=== PATIENT | female | born 1970 | race Caucasian/White ===

== ENCOUNTER → 2016-06-10 | Outpatient (CLI) | payer BC ==
[~2016-06-10] VITALS: Ht 157.5 cm; Wt 108.1 kg
[~2016-06-10] MED LIST: CENTRUM SILVER1 EAC4 PO; COLACE100 MG PO; GLUCOSAMINE &1 EAC1 PO; PRILOSEC20 MG PO; PROTONIX40 MG PO; PROZAC20 MG PO; VITAMIN D31000 UNIT PO
== END | disposition home or self-care (01) ==
LOC: AMB 12:25
PROC: 0DJ08ZZ Inspection of Upper Intestinal Tract, Via Natural or Artificial Opening Endoscopic (ICD-10-PCS; principal; 2016-06-10)
DX: K21.9 Gastro-esophageal reflux disease without esophagitis (principal); E66.01 Morbid (severe) obesity due to excess calories; Z68.41 Body mass index [BMI] 40.0-44.9, adult; Z81.8 Family history of other mental and behavioral disorders; Z83.79 Family history of other diseases of the digestive system
CPT/HCPCS: B4087; J2250

== ENCOUNTER 2016-07-09 09:43 | Inpatient (IN) | payer BC ==
[~2016-07-09] VITALS: Ht 157.5 cm; Wt 104.3 kg
[2016-07-14 09:17] LABS: POINT-OF-CARE METER ID UU14174212
[2016-07-14 09:53] VITALS: BP 137/60
[2016-07-14 14:40] VITALS: BP 150/79
[2016-07-14 14:42] LABS: GFR ESTIMATE (CALCULATED) > 59 mL/min/
[2016-07-14 16:40] VITALS: BP 123/65
[2016-07-14 20:00] VITALS: BP 109/55
[2016-07-15 00:20] VITALS: BP 132/61
[2016-07-15 04:18] VITALS: BP 134/63
[2016-07-15 07:30] VITALS: BP 147/72
[2016-07-15 07:40] LABS: HEMATOCRIT 36.8 % (36.0-46.0); MCH 30.8 PG (29.0-34.0); MCHC 33.4 G/DL (30.0-36.0); MCV 92.2 FL (83-99); MEAN PLAT.VOLUME 10.7 uM^3 (9.5-12.4); PLATELET COUNT 202 K/uL (156-360); RBC DIS.WIDTH-CV 12.4 % (11.8-14.6); RBC DIS.WIDTH-SD 41.7 % (39-53); RED BLOOD COUNT 3.99 M/uL (3.80-5.20); WHITE BLOOD COUNT 12.3 K/uL (4.1-10.2)
[2016-07-15 08:07] LABS: ANION GAP 9 MEQ/L (2-14); CHLORIDE 103 MEQ/L (99-109); GFR ESTIMATE (CALCULATED) > 59 mL/min/; GLUCOSE 104 mg/dL (70-99); MAGNESIUM 1.9 mg/dl (1.3-2.7); SAMPLE HEMOLYSIS CHECK 0; SAMPLE ICTERIC CHECK 0; SAMPLE LIPEMIA CHECK 0; SODIUM 139 MEQ/L (136-147); UREA NITROGEN (BUN) 8 mg/dL (9-23)
[2016-07-15] MEDS ORDERED: HYDROCODON-ACE1 EAC7 PO (08:29)
== END 2016-07-15 10:30 | disposition home or self-care (01) | DRG 621 ==
LOC: 2SOUTH 09:43 → 2EASTP 07-14 14:30
PROVIDERS: Surgery
PROC: 0DB64Z3 Excision of Stomach, Percutaneous Endoscopic Approach, Vertical (ICD-10-PCS; principal; 2016-07-14)
DX: E66.01 Morbid (severe) obesity due to excess calories (principal); E78.5 Hyperlipidemia, unspecified; Z68.41 Body mass index [BMI] 40.0-44.9, adult; K21.9 Gastro-esophageal reflux disease without esophagitis; F41.9 Anxiety disorder, unspecified; J30.2 Other seasonal allergic rhinitis
CPT/HCPCS: 80048; 82565; 82948; 83735; 84100; 85027; 94799; J0131; J0330; J0690; J1100; J1170; J1644; J1650; J1815; J2270; J2405; J2710; J2765; J3010; J3480; J7120; S0020